=== PATIENT | male | born 1965 ===

== ENCOUNTER 2018-01-16 07:12 | Day surgery (SDC) | payer OTHER ==
[~2018-01-16] VITALS: Ht 177.8 cm; Wt 128.8 kg
[~2018-01-16 07:12] MED LIST: AMPDEX5 PO; IRBE150 PO
== END 2018-01-16 10:20 | disposition home or self-care (01) ==
LOC: ORSCMMR 07:12 → ORD 10:15 → ORSCMMR 10:20 → ORD 10:45 → ORSCMMR 10:45 → ORD 11:45
PROVIDERS: Internal Medicine Gastroenterology
PROC: 0DJD8ZZ Inspection of Lower Intestinal Tract, Via Natural or Artificial Opening Endoscopic (ICD-10-PCS; principal; 2018-01-16 08:30)
DX: Z12.11 Encounter for screening for malignant neoplasm of colon (principal); G47.33 Obstructive sleep apnea (adult) (pediatric); E66.01 Morbid (severe) obesity due to excess calories; Z68.41 Body mass index [BMI] 40.0-44.9, adult
CPT/HCPCS: J7120

== ENCOUNTER 2021-06-10 04:39 | Emergency (ER) | payer OTHER ==
[~2021-06-10] VITALS: Ht 182.9 cm; Wt 127.0 kg
[~2021-06-10 04:39] MED LIST changes: -AMPDEX5 PO; +Adderall Xr 2020 MG PO; -IRBE150 PO; +OLMESARTAN-HCT1 EAC1 PO; +Prednisone20 MG PO; +VITAMIN D50000 UNIT PO; +Zovirax400 MG PO
[2021-06-10] MEDS ORDERED: BISA5EC PO (06:29)
[2021-06-10] MEDS ORDERED: PRAHYD1AEA PR (06:42)
== END 2021-06-10 06:50 | disposition home or self-care (01) ==
LOC: ER 04:39
DX: K64.5 Perianal venous thrombosis (principal); I10 Essential (primary) hypertension; G47.30 Sleep apnea, unspecified; Z79.899 Other long term (current) drug therapy
CPT/HCPCS: 36415; 46083; 99283-25

== ENCOUNTER → 2021-07-24 | Outpatient (CLI) | payer OTHER ==
[~2021-07-24] MED LIST changes: +BISA5EC PO; +PRAHYD1AEA PR
== END ==
LOC: PLD 19:05 → LAB SHORT 19:05
DX: J02.9 Acute pharyngitis, unspecified (principal)
CPT/HCPCS: 87081